=== PATIENT | male | born 1980 | race Caucasian/White ===

== ENCOUNTER 2016-10-05 12:36 | Emergency (ER) | payer OTHER ==
[~2016-10-05] VITALS: Ht 190.5 cm; Wt 81.8 kg
[2016-10-05 12:40] VITALS: BP 138/76; PULSE 91; RESP 12; O2SAT 99
--- NOTE | 2016-10-05 13:07 | ED.REPORT ---
HPI-Back Pain Under 40 Date of Service Oct 05, 2016 ED Provider: Mau Medina PA-C [place] is an otherwise healthy 36-year-old male presents with a chief complaint of left-sided low back pain. States it began approximately 5 days ago, and has been worsening. He localizes the pain along the left side of the low to mid spine and into his left leg. Patient states that these had difficulty with this off-and-on over the last 5 years, since an episode in which he attempted to squat lift too much weight. Admits some numbness, weakness in the left leg, as well as pain radiating to the foot. Denies fever, DM, HIV, organ transplant , immunosuppression, recent surgery, recent infection, history of back surgery, surgical implants and IV drug use. Denies bowel/bladder dysfunction and saddle anesthesia. Nursing Notes Stated Complaint: BACK PAIN Chief Complaint: Back Pain or Injury Nursing Notes Reviewed: Yes Allergies: Coded Allergies: ibuprofen (Verified Allergy, Intermediate, hives, 10/05/16) Scheduled Prednisone (PredniSONE) 20 Mg Tablet 40 MG PO DAILY Scheduled PRN Cyclobenzaprine (Cyclobenzaprine) 10 Mg Tablet 10 MG PO TID PRN PRN Spasm General Time Seen by MD: 12:48 Chief Complaint Back pain Sudden in Onset?: No Past Medical History Past Medical History Notes: Denies Review of Systems Review of Systems Note: Negative unless stated otherwise in history of present illness Physical Exam General: Well appearing, well developed, well nourished, no acute distress. Head: Atraumatic, normocephalic. Eyes: No scleral icterus or injection. No discharge. Vision grossly intact. ENT: Voice clear, hearing grossly intact. Respiratory: No respiratory distress, no increased work of breathing. Speaks in complete sentences. Skin: Warm and dry. Back: Normal to inspection. No midline spinous process tenderness. Mild to moderate tenderness over left paraspinal muscles and SI joint. Neurological: Hip flexion, knee extension, ankle dorsiflexion and plantarflexion strength 5/5 B/L. Patellar and Achilles reflexes present and equal B/L. Sensation to sharp touch intact at medial leg, dorsal foot and lateral foot B/L. negative seated straight leg raise, negative seated cross straight leg raise. Psychological: alert and oriented. Speech appropriate, linear and logical. Behavior appropriate. Initial Vital Signs Vital Signs (First) Date Time Temp Pulse Resp B/P Pulse Ox O2 Delivery O2 Flow Rate FiO2 10/05/16 12:40 35.2 91 12 138/76 99 Room Air Initial VS: Vital signs normal Re-Eval/Medical Decision Med Decision/Clinical Course Otherwise healthy 36-year-old male with a history of low back pain presents with low back pain which has been worsening over the last 5 days. He reports this is similar to his previous episodes. Back pain is without red flag symptoms for acute disc herniation, cauda equina, infection, hematoma, trauma, pyelonephritis, nephrolithiasis, AAA. I believe this is musculoskeletal back pain. Provided prednisone, see medicine. Advised home care with acetaminophen and prescribed in prednisone 40 mg daily for 4 days. Also provided small amount of cyclobenzaprine with precautions. Provided primary care referral, follow-up instructions, emergency return precautions. I believe he is stable and safe for discharge to home. Patient verbalizes understanding of and consented to the plan. Discharge & Departure Impression: Primary Impression: Low back pain Chronicity: acute Back pain laterality: left Sciatica presence: without sciatica Qualified Code: M54.5 - Low back pain Disposition: Home All VS Reviewed: Yes Condition: Stable Patient Instructions: Acute Low Back Pain (ED) Additional Instructions: Evaluation in the emergency department for lower back pain. History and physical are reassuring for emergent neurological condition such as epidural abscess or cauda equina syndrome. History does not suggest that this is likely to be a spinal fracture. Your neurological examination is normal, indicating there is no damage to the nerves in your back. I see no indication to perform imaging tests at this time. Treatment is largely symptomatic. Rest is important, especially for the next couple of days, but avoid total bed rest. Reasonable activity as tolerated is the best. The pain is best treated with 1000 mg of acetaminophen (Tylenol) every 6 hours. I will write a prescription for cyclobenzaprine, a muscle relaxant. Please do not take this medication within [address] or operating a vehicle. I will also write prescription for prednisone 40 mg. Please take this once a next 4 days starting tomorrow. You have been given given your first dose here in the emergency department. I will also give you a referral for primary care provider. This is likely to be a chronic issue for you, and will benefit from being followed by primary care provider. Please contact them to arrange follow-up to be sure this is progressing as expected and address long-term treatment. Return the emergency department for new or worsening symptoms such as loss of bowel/bladder control, numbness between your legs, new weakness/numbness or high fever. Referrals: Alphonso Osorio MD E[facility]vising Provider for APC: Sangeeta Rock MD copies to: Alphonso Osorio MD, Seth PA-C Oct 05, 2016 13:07
[2016-10-05] MEDS ORDERED: predniSONE 20 mg Tablet PO ONE (13:10)
[2016-10-05] MEDS ORDERED: PRE20 PO (13:10)
[2016-10-05] MEDS ORDERED: CYCL10TA9 PO (13:10)
== END 2016-10-05 13:25 | disposition home or self-care (01) ==
LOC: SED 12:36
DX: M54.5 Low back pain (principal); Z88.8 Allergy status to other drugs, medicaments and biological substances

== ENCOUNTER 2016-12-27 14:13 | Emergency (ER) | payer OTHER ==
[~2016-12-27] VITALS: Ht 190.5 cm; Wt 81.8 kg
[~2016-12-27 14:13] MED LIST: CYCL10TA9 PO; PRE20 PO
[2016-12-27 14:28] VITALS: BP 146/92; RESP 18; O2SAT 98
--- NOTE | 2016-12-27 14:58 | ED.REPORT ---
HPI-Rash / Abscess Date of Service Dec 27, 2016 ED Provider: Nory Delcid History of Present Illness: concerned about mrsa. primary care is no one. conerned about nose. states recently started using meth again. Does not want treatment options at this time. No primary care. Nursing Notes Stated Complaint: SORES IN NOSE,POSS INFECTION Chief Complaint: ENT & Mouth Nursing Notes Reviewed: Yes Allergies: Coded Allergies: ibuprofen (Verified Allergy, Intermediate, hives, 10/05/16) Scheduled Prednisone (PredniSONE) 20 Mg Tablet 40 MG PO DAILY Scheduled PRN Cyclobenzaprine (Cyclobenzaprine) 10 Mg Tablet 10 MG PO TID PRN PRN Spasm General Time Seen by MD: 14:57 Chief Complaint Other (sores) Hx Obtained From: Patient Past Medical History Past Medical History Notes: Denies Past Medical History Denies: Asthma Past Surgical History denies Smoking History Former Smoker (quit 4 years ago) Social History Alcohol Use: Denies alcohol use Drug Use: Meth 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 Ambulatory Status Independent Review of Systems Basic Review of Systems : No dysuria, No frequency Hematologic: No bleeding, No bruising Physical Exam Initial Vital Signs Vital Signs (First) Date Time Temp Pulse Resp B/P Pulse Ox O2 Delivery O2 Flow Rate FiO2 12/27/16 14:28 36.9 78 18 146/92 98 Room Air Initial VS: Reviewed, Vital signs normal Head / Eyes: Atraumatic, Normocephalic, PERRL ENT: Mucous membranes moist, Conjunctiva normal, No scleral icterus Neck: Supple, Non-tender, Full range of motion Respiratory: Breath sounds normal, Clear to auscultation, No respiratory distress Cardiovascular: Regular rate & rhythm, Heart sounds normal, Intact distal pulses Abdomen / GI: Soft, Non-tender, No guarding, No rebound, No distention Back: No CVA tenderness Lymphatic: No lymphadenopathy Extremities: Vascular intact, Neuro intact, No swelling, No tenderness Neurologic: Alert, Oriented, Nonfocal Psychiatric: Mood/affect normal, Behavior normal, Normal thought content General/Constitutional: Awake, Alert, No acute distress, Well appearing, Well developed, Well hydrated, Well nourished, Cooperative, Not toxic appearing Rash / Lesion Notes: patient has 1 papule on left wrist that has 2 drops of discharge. no others Head / Eyes: Atraumatic, Normocephalic, PERRL, EOMI nose has nasal discharge in both nares with right nostril with swelling Respiratory / Chest: Atraumatic, Breath sounds NL, Breath sounds = bilat, No respiratory distress Cardiovascular: Heart rate NL, Regular rhythm, Heart sounds NL, No gallop Re-Eval/Medical Decision Med Decision/Clinical Course 36 year old male presents for evualation of MRSA. Patient with active meth use. No sign of active infection at this time. Discharge & Departure Impression: Primary Impression: Behavior concern in adult Additional Impression: Methamphetamine addiction Disposition: Home Patient Instructions: Methamphetamine Abuse (ED) Additional Instructions: You can use bactroban to each side of the nose. do this in the am and pm for 7 days. If you still fell congestion, follow with ENT, Dr. Clark. Apply bactroban to any sites that have a papule on them. Right now, there is only one on your left wrist. At this time, you are not interested in resources to stop meth. The recommendation is that you stop drug use. You have refused a tdap at this time. Establish in primary care. Referrals: Garfield Clark MD [facility]upervising Provider for APC: Bruce Jeo MD copies to: Garfield Clark MD; [facility] Nory Delcid Dec 27, 2016 14:58
[2016-12-27] MEDS ORDERED: TdaP Vaccine 0.5 mL Inj IM ONE (15:05)
== END 2016-12-27 15:26 | disposition home or self-care (01) ==
LOC: SED 14:13
DX: F91.9 Conduct disorder, unspecified (principal); F15.20 Other stimulant dependence, uncomplicated; Z87.891 Personal history of nicotine dependence; Z88.6 Allergy status to analgesic agent

== ENCOUNTER 2017-03-02 22:43 | Emergency (ER) | payer OTHER ==
[~2017-03-02] VITALS: Ht 190.5 cm; Wt 84.1 kg
[2017-03-02 22:48] VITALS: BP 156/116; PULSE 81; RESP 18; O2SAT 98
--- NOTE | 2017-03-02 23:26 | ED.REPORT ---
HPI-Hand Prob/Inj Date of Service Mar 02, 2017 ED Provider: Chaitanya Wilson MD The pt is a 36 y/o male w/ a hx of methamphetamine use presenting to the ED due a L thumb laceration. He cut his thumb w/ a knife earlier tonight. Nursing Notes Stated Complaint: LACERATION ON LEFT THUMB Chief Complaint: L thumb laceration Nursing Notes Reviewed: Yes Allergies: Coded Allergies: ibuprofen (Verified Allergy, Intermediate, hives, 03/02/17) Scheduled Prednisone (PredniSONE) 20 Mg Tablet 40 MG PO DAILY Scheduled PRN Cyclobenzaprine (Cyclobenzaprine) 10 Mg Tablet 10 MG PO TID PRN PRN Spasm General Time Seen by Provider: 23:29 Chief Complaint Other (L thumb laceration) Hx Obtained From: Patient Arrived By: Walk-in Onset Occurred: Just prior to arrival Symptom Duration: Since onset Recent Healthcare: No recent doctor visit, No recent hospitalization Similar Sx Previous: Yes Past Medical History Past Medical History Notes: Denies Past Medical History None reported Past Surgical History denies Smoking History Former Smoker Social History Alcohol Use: Denies alcohol use Drug Use: Meth Other Social History: Good social support 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 Physical Exam Initial Vital Signs Vital Signs (First) Date Time Temp Pulse Resp B/P Pulse Ox O2 Delivery O2 Flow Rate FiO2 03/02/17 22:48 36.8 81 18 156/116 98 Room Air Initial VS: Reviewed, Vital signs abnormal General/Constitutional: Well-developed, Well-nourished Head / Eyes: Atraumatic, Normocephalic, PERRL ENT: Mucous membranes moist, Conjunctiva normal, No scleral icterus Neck: Supple, Non-tender, Full range of motion Respiratory: Breath sounds normal, Clear to auscultation, No respiratory distress Cardiovascular: Regular rate & rhythm, Heart sounds normal, Intact distal pulses Neurologic: Alert, Oriented, Nonfocal Psychiatric: Mood/affect normal, Behavior normal, Normal thought content Wrist / Hand: Full range of motion, No deformity L thumb has a 2.6 cm curvilinear laceration Procedures Laceration Management Time: 00:26 Procedure Performed by: ED physician Consent / Setup / Site Prep: Informed consent provided, Consent from patient , Time-out performed, Hand hygiene observed Location of Wound: L thumb Wound Length: 2 cm (2.6 cm) Local Anesthesia: Lidocaine 1%, Other (Topical LET ) Digital Block: No Digit Involved: Thumb left Wound Preparation: Shurclens, Normal saline Debridement: None Irrigation: Copious Repair Skin: ___ O (5), Nylon # Sutures - Skin: 6 Closure Layers: 1 Suture Technique: Simple Post-Procedure / Complications: Antibiotic oint applied, Dressing applied, No complications, Condition improved, Tolerated procedure well, Patient stable Re-Eval/Medical Decision Med Decision/Clinical Course Uncomplicated laceration repair without evidence of foreign body or damage to vital structures. Source of Hx: Old records Re-Evaluation/Progress : Time of Eval: 00:25 Re-Evaluation/Progress Note: Performed laceration repair. F/U instructions and RTER warnings given. All questions addressed. Counseled Regarding: Diagnosis, Need for follow-up, When/why to return to ED Discharge & Departure Primary Impression: Laceration of left thumb Encounter type: initial encounter Qualified Code: S61.012A - Laceration without foreign body of left thumb without damage to nail, initial encounter Disposition: Home Discharge Condition All VS Reviewed: Yes Condition: Stable Patient Instructions: Finger Laceration (ED) Additional Instructions: Sutures out in 7-10 days. Okay to wash but don't soak it (no dishwashing, no hot tub and no scuba diving). See your primary doctor or return here if there is evidence of infection. Be careful with your new knife. Referrals: Mary Manrique MD (PCP) Scribe Attestation Portions of this note were transcribed by Fermín Nagel. I, Dr. Wilson personally performed the history, physical exam and medical decision-making; I reviewed and confirmed the accuracy of the information in the transcribed note. copies to: Mary Manrique MD, Howard L MD Mar 02, 2017 23:26 Fermín Nagel Mar 02, 2017 23:30
[2017-03-02] MEDS ORDERED: Lidocaine-Epi-Tetracaine Solution 3 mL Syringe TOPICAL ONE (23:35)
[2017-03-03 00:54] VITALS: BP 156/116; PULSE 81; RESP 18; O2SAT 98
== END 2017-03-03 00:56 | disposition home or self-care (01) ==
LOC: SED 22:43
DX: S61.012A Laceration without foreign body of left thumb without damage to nail, initial encounter (principal); W26.0XXA Contact with knife, initial encounter; Y93.89 Activity, other specified; Y99.8 Other external cause status; Y92.9 Unspecified place or not applicable; F12.10 Cannabis abuse, uncomplicated; F15.10 Other stimulant abuse, uncomplicated; Z87.891 Personal history of nicotine dependence